=== PATIENT | male | born 1955 | race Two or more races ===

== ENCOUNTER 2021-01-29 13:00 | Outpatient (CLI) | payer OTHER | END 2021-01-29 23:59 | disposition home or self-care (01) | LOC: LAB 13:00 | PROVIDERS: ATTEND Specialist | DX: Z01.812 Encounter for preprocedural laboratory examination (principal); Z20.822 Contact with and (suspected) exposure to COVID-19 | CPT/HCPCS: C9803; U0003 ==

== ENCOUNTER 2021-02-03 08:59 | Day surgery (SDC) | payer OTHER ==
[2021-02-03] MEDS ORDERED: FENTANYL PF 100MCG/2ML AMPUL ONE (10:39)
[2021-02-03] MEDS ORDERED: MIDAZOLAM HCL 2 MG/2ML VIAL ONE (10:40)
[2021-02-03] MEDS ORDERED: ANESTHESIA TRAY IN PYXIS 1 EA TRAY MC ONE (10:44)
[2021-02-03] MEDS ORDERED: LIDOCAINE 1% INJ 50 ML MDV IJ ONE (10:45)
[2021-02-03] MEDS ORDERED: BUPIVACAINE 0.5 % PF 150 MG/30 ML VIAL ONE (10:45)
[2021-02-03] MEDS ORDERED: methylPREDNISolone ACETATE 80 MG/ML VIAL ONE (10:45)
[2021-02-03] MEDS ORDERED: HYDROCODONE/APAP 5/325MG TABLET ONE (13:18)
== END 2021-02-03 13:52 | disposition home or self-care (01) ==
LOC: DS 08:59
PROVIDERS: ATTEND Specialist
DX: S83.282A Other tear of lateral meniscus, current injury, left knee, initial encounter (principal); S83.242A Other tear of medial meniscus, current injury, left knee, initial encounter; X58.XXXA Exposure to other specified factors, initial encounter; Y93.89 Activity, other specified; Y92.89 Other specified places as the place of occurrence of the external cause; Y99.8 Other external cause status; M94.262 Chondromalacia, left knee
CPT/HCPCS: 29880; A4217; A6253; J1040; J1885; J2250; J2405; J2704; J3010; J3490